=== PATIENT | male | born 1980 | race Caucasian/White ===

== ENCOUNTER 2023-06-27 09:15 | Day surgery (SDC) | payer OTHER ==
[~2023-06-27] VITALS: Ht 175.3 cm; Wt 88.7 kg
[~2023-06-27 09:15] MED LIST: NS 1,000 ML IV ONE
[2023-06-27] MEDS ORDERED: LIDOCAINE 2% 100MG/5ML SDV (FOR ANES.) As Ordered ONE (11:02)
[2023-06-27] MEDS ORDERED: propofoL 200 MG/20 ML VIAL As Ordered ONE ×2 (11:02→11:17)
[2023-06-27 11:20] VITALS: TEMP 96.6
[2023-06-27 11:35] VITALS: BP 131/82; O2SAT 98
== END 2023-06-27 11:41 | disposition home or self-care (01) ==
LOC: M OPP 09:15
PROVIDERS: ATTEND Internal Medicine Gastroenterology
DX: Z12.11 Encounter for screening for malignant neoplasm of colon (principal); D12.6 Benign neoplasm of colon, unspecified; K64.4 Residual hemorrhoidal skin tags; K64.8 Other hemorrhoids

== ENCOUNTER → 2023-08-22 | Outpatient (REF) | LOC: M PLAIMG 11:48 | PROVIDERS: ATTEND Nurse Practitioner Family | DX: R52 Pain, unspecified (principal); M72.2 Plantar fascial fibromatosis ==

== ENCOUNTER → 2025-05-13 | Outpatient (CLI) | payer OTHER | LOC: M RAD 14:26 | PROVIDERS: ATTEND Otolaryngology | DX: R22.1 Localized swelling, mass and lump, neck (principal) ==